=== PATIENT | female | born 1970 | race American Indian/Alaskan Native ===

== ENCOUNTER 2017-12-06 14:48 | Emergency (ER) | payer SELFPAY ==
[2017-12-06 16:19] LABS: Basophils % (Auto) 0.6 % (0.0-1.8); Eosinophils # (Auto) 0.1 K/mm3 (0.0-0.4); Eosinophils % (Auto) 1.9 % (0.0-4.3); Hematocrit 40.8 % (30.3-42.9); Hemoglobin 13.7 gm/dl (10.1-14.3); Lymphocytes # (Auto) 1.6 K/mm3 (1.2-5.4); Lymphocytes % (Auto) 36.7 % (13.4-35.0); Mean Corpuscular HGB Conc 34 % (30-34); Mean Corpuscular Hemoglobin 32 pg (28-32); Mean Corpuscular Volume 94 fl (79-97); Monocytes # (Auto) 0.5 K/mm3 (0.0-0.8); Monocytes % (Auto) 12.7 % (0.0-7.3); Platelet Count 265 K/mm3 (140-440); Red Blood Count 4.33 M/mm3 (3.65-5.03); Red Cell Distribution Width 12.9 % (13.2-15.2)
[2017-12-06 16:35] LABS: Alanine Aminotransferase 11 units/L (7-56); Albumin 3.8 g/dL (3.9-5); BUN/Creatinine Ratio 14; Blood Urea Nitrogen 14 mg/dL (7-17); Calcium 8.2 mg/dL (8.4-10.2); Hemolysis Index 25
[2017-12-06] MEDS ORDERED: PLAVIX ONE (17:14)
[2017-12-06 17:23] LABS: Bilirubin,Urine NEG (Negative); Blood,Urine MOD (Negative); Calcium Oxalate Crystals,Urine 3+; Color,Urine Yellow (Yellow); Mucus,Urine 2+ /HPF; Nitrite,Urine NEG (Negative)
[2017-12-06 20:44] VITALS: BP 101/61
== END 2017-12-07 19:50 | disposition left against medical advice (07) ==
LOC: ED 14:48
DX: J11.1 Influenza due to unidentified influenza virus with other respiratory manifestations (principal); Z53.21 Procedure and treatment not carried out due to patient leaving prior to being seen by health care provider
CPT/HCPCS: 36415; 80053; 81001; 84484; 85025; 93005; 93010

== ENCOUNTER 2020-12-16 08:53 | Emergency (ER) | payer OTHER ==
[2020-12-16 09:07] VITALS: BP 99/68
--- NOTE | 2020-12-16 09:08 | Event Note ---
ED Screening Note ED Screening Note: co cp to her back worse w movement non obese no htn no hlpd no dm no fam hx non smoker This initial assessment/diagnostic orders/clinical plan/treatment(s) is/are subject to change based on patients health status, clinical progression and re- assessment by fellow clinical providers in the ED. Further treatment and workup at subsequent clinical providers discretion. Patient/guardian urged not to elope from the ED as their condition may be serious if not clinically assessed and managed. Initial orders include: ekg
--- NOTE | 2020-12-16 09:49 | XRay Report ---
CHEST PA AND LATERAL VIEWS INDICATION: Chest pain for 2 days. COMPARISON: None. FINDINGS: Support devices: None. Heart: Within normal limits. Lungs/Pleura: No acute pulmonary or pleural findings. There is mild scoliosis. IMPRESSION: 1. No acute findings. Signer Name: Nba Montoya MD Signed: 12/16/2020 9:44 AM Workstation Name: [id number]
[2020-12-16 10:34] LABS: Hematocrit 40.5 % (30.3-42.9); Hemoglobin 13.7 gm/dl (10.1-14.3); Mean Corpuscular HGB Conc 34 % (30-34); Mean Corpuscular Volume 94 fl (79-97); Platelet Count 258 K/mm3 (140-440); Red Blood Count 4.32 M/mm3 (3.65-5.03)
[2020-12-16 10:59] LABS: Alanine Aminotransferase 13 units/L (7-56); Albumin 4.3 g/dL (3.9-5); BUN/Creatinine Ratio 11; Blood Urea Nitrogen 11 mg/dL (7-17); Hemolysis Index 4
--- NOTE | 2020-12-16 11:14 | Emergency Department Report ---
ED General Adult HPI - General Chief complaint: Chest Pain Stated complaint: CHEST/BACK PAIN PUI?: No Time Seen by Provider: 12/16/20 09:07 Source: patient Mode of arrival: Ambulatory Limitations: No Limitations - History of Present Illness Initial comments: Patient is a pleasant 50-year-old -[place] female that comes to the emergency room complaining of substernal pinching chest pain. She has added off and on for days if not week she says. She has seen doctors for this but they have not been able to give her an answer. In fact she has been to urgent care and got no resolve. She also seen cardiology is got no resolved. Patient denies shortness of breath, fever or chills. She has no known Covid exposure. When asked patient if she does a lot of lifting she stated no. When I asked her what kind of work she did she said she does not work. Patient is ambulatory, [id number] nontoxic and with normal vital signs on triage. The computer captured a sat of 71 which is incorrect. The nurses been asked to correct this. -: Gradual, days(s) Quality: aching Consistency: constant Improves with: immobilization Worsens with: movement Associated Symptoms: denies other symptoms Treatments Prior to Arrival: none - Related Data Previous Rx's Medication Instructions Recorded Last Taken Type Cyclobenzaprine [Flexeril] 10 mg PO TID PRN #10 tablet 12/16/20 Unknown Rx Ibuprofen [Motrin] 800 mg PO Q8HR PRN #30 tablet 12/16/20 Unknown Rx Allergies Allergy/AdvReac Type Severity Reaction Status Date / Time No Known Allergies Allergy Unverified 12/06/17 15:12 ED Review of Systems ROS: Stated complaint: CHEST/BACK PAIN Other details as noted in HPI Comment: All other systems reviewed and negative ED Past Medical Hx - Past Medical History Previous Medical History?: No - Surgical History Past Surgical History?: Yes Additional Surgical History: left lumpectomy - Family History Family history: no significant - Social History Smoking Status: Never Smoker - Medications Home Medications: Home Medications Medication Instructions Recorded Confirmed Last Taken Type Cyclobenzaprine [Flexeril] 10 mg PO TID PRN #10 tablet 12/16/20 Unknown Rx Ibuprofen [Motrin] 800 mg PO Q8HR PRN #30 tablet 12/16/20 Unknown Rx ED Physical Exam - General Limitations: No Limitations General appearance: alert, in no apparent distress - Head Head exam: Present: atraumatic, normocephalic - Eye Eye exam: Present: normal appearance - ENT ENT exam: Present: mucous membranes moist - Neck Neck exam: Present: normal inspection - Respiratory Respiratory exam: Present: normal lung sounds bilaterally. Absent: respiratory distress - Cardiovascular Cardiovascular Exam: Present: regular rate, normal rhythm. Absent: systolic murmur, diastolic murmur, rubs, gallop - GI/Abdominal GI/Abdominal exam: Present: soft, normal bowel sounds - Extremities Exam Extremities exam: Present: normal inspection - Back Exam Back exam: Present: normal inspection - Neurological Exam Neurological exam: Present: alert, oriented X3 - Psychiatric Psychiatric exam: Present: normal affect, normal mood - Skin Skin exam: Present: warm, dry, intact, normal color. Absent: rash ED Course Vital Signs 12/16/20 12/16/20 09:03 09:14 Temperature 97.2 F L Pulse Rate 74 Respiratory 20 Rate Blood Pressure 99/68 O2 Sat by Pulse 71 L 99 Oximetry ED Medical Decision Making - Lab Data Result diagrams: 12/16/20 09:58 12/16/20 09:58 - EKG Data EKG shows normal: sinus rhythm Rate: normal - EKG Data When compared to previous EKG there are: no significant change Interpretation: no acute changes - Radiology Data Radiology results: report reviewed, image reviewed - Medical Decision Making oxygen sat not 71 in triage did not capture properly sat 99 on room air 12 lead nap chest xray nap Vital Signs 12/16/20 12/16/20 09:03 09:14 Temperature 97.2 F L Pulse Rate 74 Respiratory 20 Rate Blood Pressure 99/68 O2 Sat by Pulse 71 L 99 Oximetry Vital signs normal as noted in triage. Patient being discharged home with PCP follow-up. On discharge interview patient added that she needed a work note. Patient discharged to home she verbalizes understanding of discharge plan of care - Differential Diagnosis ro uri/cardiac etio of cp Critical care attestation.: If time is entered above; I have spent that time in minutes in the direct care of this critically ill patient, excluding procedure time. ED Disposition Clinical Impression: Musculoskeletal pain Disposition: - TO HOME OR SELFCARE Is pt being admited?: No Does the pt Need Aspirin: No Condition: Stable Instructions: Musculoskeletal Pain Additional Instructions: WARM COMPRESSES MED ORDERED TODAY Prescriptions: Cyclobenzaprine [Flexeril] 10 mg PO TID PRN #10 tablet PRN Reason: Muscle Spasm Ibuprofen [Motrin] 800 mg PO Q8HR PRN #30 tablet PRN Reason: Pain, Moderate (4-6) Referrals: DILLON HERNANDEZ MD [Staff Physician] - 3-5 Days Time of Disposition: 11:13
== END 2020-12-16 11:15 | disposition home or self-care (01) ==
LOC: ED 08:53
DX: M79.10 Myalgia, unspecified site (principal); Z79.899 Other long term (current) drug therapy
CPT/HCPCS: 36415; 71046; 80053; 85027; 93005; 99283